=== PATIENT | male | born 1945 | race African-American/Black ===

== ENCOUNTER 2020-06-29 13:11 | Emergency (ER) | payer MEDICARE ==
--- NOTE | 2020-06-29 13:40 | Event Note ---
ED Screening Note ED Screening Note: Patient presents for unable to urinate since last night He has associated abdominal pain He has been constipated for 2 to 3 days He had a left knee replacement performed at [facility] and has been taking Colace, MiraLAX without any relief He is taking oxycodone every 6 hours as needed for pain He denies any fever, vomiting, diarrhea, shortness of breath, chest pain This initial assessment/diagnostic orders/clinical plan/treatment(s) is/are subject to change based on patients health status, clinical progression and re- assessment by fellow clinical providers in the ED. Further treatment and workup at subsequent clinical providers discretion. Patient/guardian urged not to elope from the ED as their condition may be serious if not clinically assessed and managed. Initial orders include: Labs, urine, bladder scan, Tavarez, x-rays, EKG
[2020-06-29 14:09] LABS: Basophils % (Auto) 0.3 % (0.0-1.8); Eosinophils % (Auto) 0.1 % (0.0-4.3); Hematocrit 35.5 % (35.5-45.6); Hemoglobin 11.4 gm/dl (11.8-15.2); Lymphocytes # (Auto) 1.2 K/mm3 (1.2-5.4); Mean Corpuscular HGB Conc 32 % (32-34); Mean Corpuscular Volume 72 fl (84-94); Monocytes # (Auto) 0.7 K/mm3 (0.0-0.8); Monocytes % (Auto) 6.5 % (0.0-7.3); Platelet Count 179 K/mm3 (140-440); Red Blood Count 4.94 M/mm3 (3.65-5.03); Red Cell Distribution Width 15.7 % (13.2-15.2)
[2020-06-29 14:34] LABS: Alanine Aminotransferase 22 units/L (7-56); BUN/Creatinine Ratio 14; Blood Urea Nitrogen 14 mg/dL (9-20); Calcium 8.7 mg/dL (8.4-10.2); Hemolysis Index 3
--- NOTE | 2020-06-29 14:34 | XRay Report ---
ABDOMEN 2 VIEW(S) INDICATION / CLINICAL INFORMATION: constipation. COMPARISON: None available. FINDINGS: TUBES / LINES: None. BOWEL GAS PATTERN: Fecal material is noted throughout the colon, which is normal in caliber. No dilat ed loops of small bowel. FREE AIR / EXTRALUMINAL GAS: None seen. ADDITIONAL FINDINGS: Aortobiiliac stent graft is noted. Phleboliths are noted in the right hemipelvis . IMPRESSION: 1. No acute findings. Signer Name: Edgar Flores MD Signed: 06/29/2020 2:29 PM Workstation Name: [id number]
--- NOTE | 2020-06-29 14:41 | XRay Report ---
CHEST 2 VIEWS INDICATION / CLINICAL INFORMATION: tachycardia, hypoxia. COMPARISON: None available. FINDINGS: SUPPORT DEVICES: None. HEART / MEDIASTINUM: Normal heart size. Atherosclerosis in the thoracic aorta. LUNGS / PLEURA: Mild linear scarring in the left midlung. No acute pulmonary abnormality. ADDITIONAL FINDINGS: No significant additional findings. IMPRESSION: 1. No acute findings. Signer Name: Zacarias Ghotra MD Signed: 06/29/2020 2:37 PM Workstation Name: [id number]
[2020-06-29] MEDS ORDERED: HYDROmorphone 1 MG/1 ML INJ IV ONE (15:32)
[2020-06-29] MEDS ORDERED: LACTATED RINGERS 500 ML IV ONE ×2 (15:32→17:09)
--- NOTE | 2020-06-29 15:32 | Emergency Department Report ---
ED General Adult HPI - General Chief complaint: Urogenital-Male Stated complaint: ISSUES URINATING PUI?: No Time Seen by Provider: 06/29/20 13:39 Source: patient, family, RN notes reviewed Mode of arrival: Ambulatory Limitations: Language Barrier, Physical Limitation - History of Present Illness Initial comments: The patient was evaluated in the emergency department for symptoms described in the history of present illness. He/she was evaluated in the context of the global COVID-19 pandemic, which necessitated consideration that the patient might be at risk for infection with the virus that causes COVID-19. Institutional protocols and algorithms that pertain to the evaluation of patients at risk for COVID-19 are in a state of rapid change based on information released by regulatory bodies including the CDC and federal and state organizations. These policies and algorithms were followed during the patient's care in the emergency department. Please note that these policies, procedures and recommendations changed on a rapid basis. Patient request that son translate. Rodrigo Jennifer; [phone] The patient is a 75-year-old gentleman. He is not known to myself previously. The patient recently had left knee replacement at [facility], this past June 25. He was started on narcotics/oxycodone for pain, as needed, and has not been able to have a bowel movement since Sunday. The patient denies headache, neck pain, chest pain, shortness of breath. The patient denies fever and chills. He reports that his left leg "does not feel so bad", as per his son. He has been taking oxycodone as prescribed, but has not been able to have a bowel movement. Subsequently, he has developed diffuse abdominal pain, cramping, inability to defecate, and inability to urinate. He denies posterior leg pain or leg swelling. The patient also reports that his left leg feels better, and he feels like he could do with Tylenol. He has taken MiraLAX and Colace with minimal improvement in symptoms. The patient also indicated that he had improvement in inability to urinate after placement of a Tavarez catheter, IV fluids, and small dose of hydromorphone while here in the emergency room. The patient denies loss of taste and smell. The patient denies diarrhea. Patient and son deny potential Covid symptomatology. -: Gradual, days(s) Location: abdomen Quality: aching Consistency: constant Improves with: rest, other (Defecation, passing gas, placement of a Tavarez catheter) - Related Data Home Medications Medication Instructions Recorded Confirmed Last Taken Atenolol 25 mg PO DAILY 02/15/15 02/23/15 02/22/15 Previous Rx's Medication Instructions Recorded Last Taken Type Docusate Sodium [Colace] 100 mg PO BID PRN #30 capsule 06/29/20 Unknown Rx Polyethylene Glycol 3350 [Miralax] 1 cap PO QDAY PRN #1 can 06/29/20 Unknown Rx Allergies Allergy/AdvReac Type Severity Reaction Status Date / Time No Known Allergies Allergy Verified 02/15/15 11:41 ED Review of Systems ROS: Stated complaint: ISSUES URINATING Other details as noted in HPI Constitutional: denies: fever, malaise, weakness Eyes: denies: eye discharge Respiratory: denies: cough, shortness of breath Cardiovascular: denies: chest pain, palpitations Gastrointestinal: abdominal pain, constipation. denies: vomiting Genitourinary: as per HPI, other (Patient reports inability to urinate) Neurological: weakness (General weakness) Hematological/Lymphatic: denies: easy bleeding ED Past Medical Hx - Past Medical History Hx Hypertension: Yes Hx Diabetes: No Hx Asthma: No Hx HIV: No - Surgical History Additional Surgical History: Left knee replacement on Sun at [place] 06/25/20 - Social History Smoking Status: Unknown if ever smoked - Medications Home Medications: Home Medications Medication Instructions Recorded Confirmed Last Taken Type Atenolol 25 mg PO DAILY 02/15/15 02/23/15 02/22/15 History Docusate Sodium [Colace] 100 mg PO BID PRN #30 capsule 06/29/20 Unknown Rx Polyethylene Glycol 3350 [Miralax] 1 cap PO QDAY PRN #1 can 06/29/20 Unknown Rx ED Physical Exam - General Limitations: Language Barrier, Physical Limitation General appearance: alert, anxious - Head Head exam: Present: atraumatic, normocephalic - Eye Eye exam: Present: normal appearance, EOMI. Absent: nystagmus - ENT ENT exam: Present: normal exam, normal orophraynx, mucous membranes moist, n ormal external ear exam - Neck Neck exam: Present: normal inspection, full ROM. Absent: tenderness, meningismus - Respiratory Respiratory exam: Present: normal lung sounds bilaterally. Absent: respiratory distress, wheezes, rales, rhonchi, stridor - Cardiovascular Cardiovascular Exam: Present: normal rhythm, tachycardia, normal heart sounds. Absent: systolic murmur, diastolic murmur, rubs, gallop - GI/Abdominal GI/Abdominal exam: Present: soft, distended, tenderness (Suprapubic tenderness). Absent: guarding, rebound, rigid, pulsatile mass - Rectal Rectal exam: Present: deferred - Extremities Exam Extremities exam: Present: normal inspection (Ecchymosis noted to left lower extremity, consistent with recent surgery), other (2+ pulses noted in the bilateral upper and lower extremities. There is no palpable cord. negative Homans sign. Muscular compartments are soft. The pelvis is stable.). Absent: tenderness, calf tenderness - Back Exam Back exam: Present: normal inspection. Absent: full ROM, tenderness, CVA tenderness (R), CVA tenderness (L), paraspinal tenderness, vertebral tenderness - Neurological Exam Neurological exam: Present: alert, other (No facial droop. Tongue midline. Extraocular movements intact bilaterally. Facial sensation intact to light touc h in V1, V2, V3 distribution bilaterally. 5 and a 5 strength in 4 extremities. Sensation intact to light touch in 4 extremities.) - Psychiatric Psychiatric exam: Present: anxious - Skin Skin exam: Present: warm, ecchymosis ED Course Vital Signs 06/29/20 06/29/20 06/29/20 13:35 15:47 16:43 Temperature 98.5 F Pulse Rate 123 H 104 H Respiratory 24 16 16 Rate Blood Pressure 150/88 Blood Pressure 141/85 [Left] O2 Sat by Pulse 92 98 Oximetry O2 Sat by Pulse Oximetry [ Digit-Finger] 06/29/20 18:55 Temperature Pulse Rate Respiratory Rate Blood Pressure Blood Pressure [Left] O2 Sat by Pulse Oximetry O2 Sat by Pulse 93 Oximetry [ Digit-Finger] - Reevaluation(s) Reevaluation #1: 06/29/20 17:23 Differential diagnosis, including but not limited to: Opioid-induced constipation, obstruction, constipation induced urinary retention, pulmonary embolism Assessment and plan: 75-year-old gentleman status post major left knee orthopedic surgery, with probable opioid induced constipation, and subsequent constipation induced urinary retention. Patient's urinary symptoms are much improved with placement of a Tavarez catheter. Extensive discussion had with patient and son, that this is likely opioid induced constipation, and may take a few weeks to improve. Patient feels like his pain is tolerable, and does not feel like he requires narcotics at this time. Unexpectedly, while patient denies chest pain and shortness of breath as well as fever and cough, he was found to be markedly tachycardic, likely secondary to pain, anxiety, stress or all the above, but initial O2 sat was 92%. Patient denies acute respiratory complaints. When I am speaking to the patient, initially on pulse ox, his pulse ox is 92 to 94%. It then improved to its own to 96/97% without intervention. Given recent orthopedic surgery, O2 sat, initial tachycardia, D-dimer sent to risk stratify patient for pulmonary embolism, and is elevated. We will therefore obtain CT scan of the chest. We will also obtain CT scan of the abdomen pelvis. We will reassess after initial data points. I have discussed this plan of care with patient and son, son has articulated understanding, communicated this to the patient 06/29/20 18:47 D-dimer was elevated. CT scan of the chest was obtained. It is negative for acute findings. Saturating at 96/97% on room air. Heart rate [address] scan abdomen pelvis shows constipation. Does not demonstrate any acute surgical condition. I have gone back and extensively discussed findings with patient and his son. Patient and his daughter are amenable and okay with being discharged with Tavarez catheter to leg bag. They will discontinue oxycodone. MiraLAX, Colace, diet lifestyle modification for constipation, likely opioid induced. Patient and son are requesting enema, nursing team will administer soapsuds enema. Patient and son understand that they need to follow-up with outpatient primary care and/or urology for presumed opioid-induced constipation, and urinary retention. They will also follow-up with her outpatient orthopedic surgeon. No hypoxia at this time, O2 sat 97%. Do not suspect Covid at this time. - Pulse Oximetry Interpretation Digit-Finger Initial Pulse Oximetry Readin O2 Sat by Pulse Oximetry: 93 Actions Taken: none Additional Comments: Patient initially hypoxic to 92%. When I am speaking to the patient, O2 sat 93 to 94%. Then, O2 sat improved to 97% without intervention. ED Medical Decision Making - Lab Data Result diagrams: 06/29/20 13:55 06/29/20 13:55 Vital Signs 06/29/20 06/29/20 06/29/20 13:35 15:47 16:43 Temperature 98.5 F Pulse Rate 123 H 104 H Respiratory 24 16 16 Rate Blood Pressure 150/88 Blood Pressure 141/85 [Left] O2 Sat by Pulse 92 98 Oximetry Lab Results 06/29/20 06/29/20 06/29/20 Range/Units 13:55 13:55 15:55 WBC 10.5 (4.5-11.0) K/mm3 RBC 4.94 (3.65-5.03) M/mm3 Hgb 11.4 L (11.8-15.2) gm/dl Hct 35.5 (35.5-45.6) % MCV 72 L (84-94) fl MCH 23 L (28-32) pg MCHC 32 (32-34) % RDW 15.7 H (13.2-15.2) % Plt Count 179 (140-440) K/mm3 Lymph % (Auto) 11.0 L (13.4-35.0) % [place] % (Auto) 6.5 (0.0-7.3) % Eos % (Auto) 0.1 (0.0-4.3) % Baso % (Auto) 0.3 (0.0-1.8) % Lymph # (Auto) 1.2 (1.2-5.4) K/mm3 [place] # (Auto) 0.7 (0.0-0.8) K/mm3 Eos # (Auto) 0.0 (0.0-0.4) K/mm3 Baso # (Auto) 0.0 (0.0-0.1) K/mm3 Seg Neutrophils % 82.1 H (40.0-70.0) % Seg Neutrophils # 8.6 H (1.8-7.7) K/mm3 D-Dimer (0-234) ng/mlDDU Sodium 135 L (137-145) mmol/L Potassium 3.6 (3.6-5.0) mmol/L Chloride 100.5 (98-107) mmol/L Carbon Dioxide 26 (22-30) mmol/L Anion Gap 12 mmol/L BUN 14 (9-20) mg/dL Creatinine 1.0 (0.8-1.3) mg/dL Estimated GFR > 60 ml/min BUN/Creatinine Ratio 14 % Glucose 189 H (75-100) mg/dL Calcium 8.7 (8.4-10.2) mg/dL Magnesium 1.90 (1.7-2.3) mg/dL Total Bilirubin 1.20 (0.1-1.2) mg/dL AST 36 (5-40) units/L ALT 22 (7-56) units/L Alkaline Phosphatase 65 (35-129) units/L Total Creatine Kinase 224 H (55-170) units/L Troponin T < 0.010 (0.00-0.029) ng/mL Total Protein 6.8 (6.3-8.2) g/dL Albumin 4.0 (3.9-5) g/dL Albumin/Globulin Ratio 1.4 % Urine Color Yellow (Yellow) Urine Turbidity Clear (Clear) Urine pH 7.0 (5.0-7.0) Ur Specific [place] 1.010 (1.003-1.030) Urine Protein <15 mg/dl (Negative) mg/dL Urine Glucose (UA) Neg (Negative) mg/dL Urine Ketones Neg (Negative) mg/dL Urine Blood Neg (Negative) Urine Nitrite Neg (Negative) Urine Bilirubin Neg (Negative) Urine Urobilinogen < 2.0 (<2.0) mg/dL Ur Leukocyte Esterase Neg (Negative) Urine WBC (Auto) < 1.0 (0.0-6.0) /HPF Urine RBC (Auto) 1.0 (0.0-6.0) /HPF 06/29/20 Range/Units 16:11 WBC (4.5-11.0) K/mm3 RBC (3.65-5.03) M/mm3 Hgb (11.8-15.2) gm/dl Hct (35.5-45.6) % MCV (84-94) fl MCH (28-32) pg MCHC (32-34) % RDW (13.2-15.2) % Plt Count (140-440) K/mm3 Lymph % (Auto) (13.4-35.0) % [place] % (Auto) (0.0-7.3) % Eos % (Auto) (0.0-4.3) % Baso % (Auto) (0.0-1.8) % Lymph # (Auto) (1.2-5.4) K/mm3 [place] # (Auto) (0.0-0.8) K/mm3 Eos # (Auto) (0.0-0.4) K/mm3 Baso # (Auto) (0.0-0.1) K/mm3 Seg Neutrophils % (40.0-70.0) % Seg Neutrophils # (1.8-7.7) K/mm3 D-Dimer 1989.40 H (0-234) ng/mlDDU Sodium (137-145) mmol/L Potassium (3.6-5.0) mmol/L Chloride (98-107) mmol/L Carbon Dioxide (22-30) mmol/L Anion Gap mmol/L BUN (9-20) mg/dL Creatinine (0.8-1.3) mg/dL Estimated GFR ml/min BUN/Creatinine Ratio % Glucose (75-100) mg/dL Calcium (8.4-10.2) mg/dL Magnesium (1.7-2.3) mg/dL Total Bilirubin (0.1-1.2) mg/dL AST (5-40) units/L ALT (7-56) units/L Alkaline Phosphatase (35-129) units/L Total Creatine Kinase (55-170) units/L Troponin T (0.00-0.029) ng/mL Total Protein (6.3-8.2) g/dL Albumin (3.9-5) g/dL Albumin/Globulin Ratio % Urine Color (Yellow) Urine Turbidity (Clear) Urine pH (5.0-7.0) Ur Specific [place] (1.003-1.030) Urine Protein (Negative) mg/dL Urine Glucose (UA) (Negative) mg/dL Urine Ketones (Negative) mg/dL Urine Blood (Negative) Urine Nitrite (Negative) Urine Bilirubin (Negative) Urine Urobilinogen (<2.0) mg/dL Ur Leukocyte Esterase (Negative) Urine WBC (Auto) (0.0-6.0) /HPF Urine RBC (Auto) (0.0-6.0) /HPF - EKG Data -: EKG Interpreted by Wy EKG shows normal: sinus rhythm Rate: tachycardia - EKG Data When compared to previous EKG there are: previous EKG unavailable 06/29/20 17:34 EKG interpreted by myself at 17: 28 Sinus rhythm, tachycardia. Left axis deviation, left anterior fascicular block. Left ventricular hypertrophy. Motion artifact V3. No endorsement of chest pain. This EKG is not a STEMI. - Radiology Data Radiology results: pending, report reviewed, image reviewed ABDOMEN 2 VIEW(S) INDICATION / CLINICAL INFORMATION: constipation. COMPARISON: None available. FINDINGS: TUBES / LINES: None. BOWEL GAS PATTERN: Fecal material is noted throughout the colon, which is normal in caliber. No dilated loops of small bowel. FREE AIR / EXTRALUMINAL GAS: None seen. ADDITIONAL FINDINGS: Aortobiiliac stent graft is noted. Phleboliths are noted in the right hemipelvis. IMPRESSION: 1. No acute findings. Signer Name: Edgar Flores MD Signed: 06/29/2020 1:29 PM Workstation Name: [id number] CHEST 2 VIEWS INDICATION / CLINICAL INFORMATION: tachycardia, hypoxia. COMPARISON: None available. FINDINGS: SUPPORT DEVICES: None. HEART / MEDIASTINUM: Normal heart size. Atherosclerosis in the thoracic aorta. LUNGS / PLEURA: Mild linear scarring in the left midlung. No acute pulmonary abnormality. ADDITIONAL FINDINGS: No significant additional findings. IMPRESSION: 1. No acute findings. Signer Name: Zacarias Ghotra MD Signed: 06/29/2020 1:37 PM Workstation Name: [id number] CTA CHEST WITH IV CONTRAST INDICATION: Tachycardia, elevated D-dimer. TECHNIQUE: Axial CT images were obtained through the chest after injection of 100 cc Omnipaque 350 IV contrast. 3 plane MIP reconstructions were produced. All CT scans at this location are performed using CT dose reduction for ALARA by means of automated exposure control. COMPARISON: None available. FINDINGS: Pulmonary Arteries: No pulmonary emboli. Lungs: No significant abnormality. Trachea and Bronchi: No significant abnormality. Heart and Pericardium: Mild coronary atherosclerotic calcifications. Vasculature: Atherosclerotic but not aneurysmal thoracic aorta. Lymphatics: No lymphadenopathy. Additional Findings: None. Upper Abdomen: No acute findings. Skeletal Structures: No acute findings or aggressive bone lesions. IMPRESSION: 1. No CT evidence for pu lmonary embolism. 2. No acute findings. Signer Name: Zacarias Ghotra MD Signed: 06/29/2020 5:06 PM Workstation Name: [id number] CT ABDOMEN AND PELVIS WITH CONTRAST HISTORY: Abdominal pain and constipation COMPARISON: None TECHNIQUE: Routine abdominal and pelvic CT exam performed following intravenous contrast administration.. All CT scans at this location are performed using CT dose reduction for ALARA by means of automated exposure control. FINDINGS: CT ABDOMEN: Lung Bases: No significant abnormality. Liver: No significant abnormality. Biliary: No significant abnormality. Spleen: No significant abnormality. Unenlarged. Pancreas: No significant abnormality. Adrenals: No significant abnormality. Kidneys: No acute findings. Bilateral renal cysts, including a large simple cyst measuring about 8 cm arising from the superior left kidney. Lymphatics: No lymphadenopathy. Vasculature: Previous aortobiiliac stent graft placement without recurrent aortic aneurysm. Bowel/Peritoneum: No acute findings. Large volume of stool in the rectum. Sigmoid diverticulosis without diverticulitis. Small diverticulum arising from the second part of the duodenum. Normal appendix. CT PELVIC: : Tavarez catheter in the urinary bladder. Lymphatics: No lymphadenopathy. Osseous Structures: No aggressive appearing osseous lesions. Additional Findings: None IMPRESSION: 1. No acute findings. 2. Large volume of stool in the rectum. Signer Name: Zacarias Ghotra MD Signed: 06/29/2020 5:09 PM Workstation Name: [id number] Critical care attestation.: If time is entered above; I have spent that time in minutes in the direct care of this critically ill patient, excluding procedure time. ED Disposition Clinical Impression: Acute abdominal pain, Urinary retention Constipation Qualifiers: Constipation type: drug induced constipation Qualified Code(s): K59.03 - Drug induced constipation Disposition: DC-01 TO HOME OR SELFCARE Is pt being admited?: No Does the pt Need Aspirin: No Condition: Good Instructions: Constipation, Adult, Acute Urinary Retention, Male Additional Instructions: Do not take metformin medication for the next 2 days, if patient takes this medication. Patient most likely experiencing opioid-induced constipation, which is also likely causing urinary retention. Discontinue/stop oxycodone, Percocet, and all opioid prescriptions. Increase water consumption to 6 cups of water per day, and consume plenty of fiber, vegetables, lean protein. Patient may also consume prune juice [id number] as needed. Constipation typically takes 3 to 6 weeks to improve. Patient may take the MiraLAX medication as directed, and Colace medication as directed. Patient may take up to 300 mg of Colace per 24 hours as needed for constipation. Patient is being discharged with a Tavarez catheter to leg bag. We recommend that the patient follow-up with a primary care doctor or urologist for trial of void within the next 5 to 7 days. It is likely that if constipation resolves, which we anticipate it should with cessation of opioid medications, that urinary retention will also improve and resolve, and allow for removal of the Tavarez catheter. We also recommend that the patient follow-up with his primary care doctor for constipation within the next week. We also recommend that the patient follow-up with his orthopedic surgeon within the next week, or as scheduled. Please have your primary care doctor contact the medical records department to obtain copies of laboratory studies, radiology studies, and follow-up on nonemergent incidental findings. [facility] is a local urologic practice. Dr. Geoff Romo Is a local primary care doctor. Please return to the emergency room right away with new pain, worsened pain, migration of pain, projectile vomiting, change in mental status, confusion, inability to tolerate liquid feeds, new, worsened or different symptoms not present on the initial emergency room evaluation. Prescriptions: Docusate Sodium [Colace] 100 mg PO BID PRN #30 capsule PRN Reason: Constipation Polyethylene Glycol 3350 [Miralax] 1 cap PO QDAY PRN #1 can PRN Reason: Constipation Referrals: SUE ROMO MD [Staff Physician] - 3-5 Days [facility] [Provider Group] - 3-5 Days
[2020-06-29 16:13] LABS: Bilirubin,Urine NEG (Negative); Blood,Urine NEG (Negative); Color,Urine Yellow (Yellow); Protein,Urine <15 mg/dL mg/dL (Negative); Urobilinogen,Urine < 2.0 mg/dL (<2.0); WBC,Urine < 1.0 /HPF (0.0-6.0)
[2020-06-29 16:44] VITALS: BP 141/85
--- NOTE | 2020-06-29 18:11 | Cat Scan Report ---
CTA CHEST WITH IV CONTRAST INDICATION: Tachycardia, elevated D-dimer. TECHNIQUE: Axial CT images were obtained through the chest after injection of 100 cc Omnipaque 350 IV contrast. 3 plane MIP reconstructions were produced. All CT scans at this location are performed using CT dose reduction for ALARA by means of automated exposure control. COMPARISON: None available. FINDINGS: Pulmonary Arteries: No pulmonary emboli. Lungs: No significant abnormality. Trachea and Bronchi: No significant abnormality. Heart and Pericardium: Mild coronary atherosclerotic calcifications. Vasculature: Atherosclerotic but not aneurysmal thoracic aorta. Lymphatics: No lymphadenopathy. Additional Findings: None. Upper Abdomen: No acute findings. Skeletal Structures: No acute findings or aggressive bone lesions. IMPRESSION: 1. No CT evidence for pulmonary embolism. 2. No acute findings. Signer Name: Zacarias Ghotra MD Signed: 06/29/2020 6:06 PM Workstation Name: [id number]
--- NOTE | 2020-06-29 18:13 | Cat Scan Report ---
CT ABDOMEN AND PELVIS WITH CONTRAST HISTORY: Abdominal pain and constipation COMPARISON: None TECHNIQUE: Routine abdominal and pelvic CT exam performed following intravenous contrast administrat ion.. All CT scans at this location are performed using CT dose reduction for ALARA by means of autom ated exposure control. FINDINGS: CT ABDOMEN: Lung Bases: No significant abnormality. Liver: No significant abnormality. Biliary: No significant abnormality. Spleen: No significant abnormality. Unenlarged. Pancreas: No significant abnormality. Adrenals: No significant abnormality. Kidneys: No acute findings. Bilateral renal cysts, including a large simple cyst measuring about 8 cm arising from the superior left kidney. Lymphatics: No lymphadenopathy. Vasculature: Previous aortobiiliac stent graft placement without recurrent aortic aneurysm. Bowel/Peritoneum: No acute findings. Large volume of stool in the rectum. Sigmoid diverticulosis with out diverticulitis. Small diverticulum arising from the second part of the duodenum. Normal appendix. CT PELVIC: : Tavarez catheter in the urinary bladder. Lymphatics: No lymphadenopathy. Osseous Structures: No aggressive appearing osseous lesions. Additional Findings: None IMPRESSION: 1. No acute findings. 2. Large volume of stool in the rectum. Signer Name: Zacarias Ghotra MD Signed: 06/29/2020 6:09 PM Workstation Name: [id number]
--- NOTE | 2020-06-30 12:09 | Electrocardiograph Report ---
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
== END 2020-06-29 20:00 | disposition home or self-care (01) ==
LOC: ED 13:11
DX: K59.00 Constipation, unspecified (principal); R33.9 Retention of urine, unspecified; I10 Essential (primary) hypertension; Z79.899 Other long term (current) drug therapy
CPT/HCPCS: 36415; 51702; 71046; 71275; 74019; 74177; 80053; 81001; 82550; 83735; 84484; 85025; 85379; 93005; 96374; 99284; J1170; J7120; Q9967